=== PATIENT | female | born 1945 | race Caucasian/White ===

== ENCOUNTER → 2022-07-23 | Outpatient (CLI) | payer MEDICARE, OTHER ==
--- NOTE | 2022-07-23 16:36 | Diagnostic Imaging Report ---
EXAMINATION: Chest 2 view HISTORY: Shortness of breath COMPARISON: None available. FINDINGS: The lungs are clear without edema or pneumonia. No pleural effusion or pneumothorax. Heart size is normal. IMPRESSION: 1. Clear lungs. Dictated by: Dictated on workstation # [id number]
== END ==
LOC: RAD FS 15:16
PROVIDERS: ATTEND Nurse Practitioner Family
DX: R06.02 Shortness of breath (principal); I10 Essential (primary) hypertension; R06.09 Other forms of dyspnea; R53.83 Other fatigue
CPT/HCPCS: 71046

== ENCOUNTER → 2022-08-17 | Outpatient (CLI) | payer MEDICARE, OTHER ==
--- NOTE | 2022-08-17 13:42 | Diagnostic Imaging Report ---
PROCEDURE: US carotid duplex, bilateral. TECHNIQUE: Multiple real-time grayscale images were obtained over the carotid arteries in various projections, bilaterally. Additional spectral analysis and color Doppler duplex images were also obtained. INDICATION: Hypertension with shortness of breath and fatigue. FINDINGS: There is mild plaquing in both carotid systems. Velocities are normal bilaterally. No velocity elevation or stenosis is identified in either carotid system. Both vertebral arteries show antegrade flow. IMPRESSION: No evidence of a hemodynamically significant stenosis. Parameters based on the consensus panel Langston-Scale and Doppler ultrasound criteria published January 2003, Radiology, Volume 229. DOPPLER (peak systolic velocity M/S Right Left CCA 1.15 1.23 ICA Proximal .83 .82 ICA Mid 1.09 .84 ICA Distal 1.11 1.15 RATIO .96 1 ECA 1.34 .89 VERT .48 .73 Dictated by: Dictated on workstation # [id number]
== END ==
LOC: RAD FS 11:36
PROVIDERS: ATTEND Nurse Practitioner Family
DX: R53.83 Other fatigue (principal); I10 Essential (primary) hypertension; R06.02 Shortness of breath; R06.09 Other forms of dyspnea
CPT/HCPCS: 93880; C8929; 93306